=== PATIENT | female | born 1995 | race Caucasian/White ===

== ENCOUNTER 2024-09-28 12:56 | Outpatient (CLI) | payer BC | END 2024-09-28 12:57 | disposition home or self-care (01) | LOC: BICRAD 12:56 → RAD 12:57 | PROVIDERS: ATTEND Family Medicine | DX: M54.6 Pain in thoracic spine (principal); M54.50 Low back pain, unspecified; M43.9 Deforming dorsopathy, unspecified | CPT/HCPCS: 72072; 72100 ==